=== PATIENT | female | born 1980 ===

== ENCOUNTER 2019-06-10 19:40 | Observation (INO) ==
[2019-06-10] MEDS ORDERED: ONDANSETRON 4 MG/2 ML VIAL IV ONE (20:06)
[2019-06-10] MEDS ORDERED: MORPHINE 4 MG/1 ML VIAL IV STA (20:06)
[2019-06-10 20:39] LABS: Basophils % 0.3 % (0.0-0.8); Eosinophils # 0.1 10*3/uL (0.0-0.87); Eosinophils % 0.8 % (0.00-10.9); Hematocrit 37.8 VOL% (35.7-47.0); Hemoglobin 12.8 GM/DL (12.0-16.0); Immature Granulocytes % 0.3 %; Immature Granulocytes Absolute 0.03 #; Lymphocytes # 1.1 10*3/uL (1.4-4.0); Lymphocytes % 12.5 % (21.3-54.2); Mean Corpuscular HGB Conc 33.9 GM/DL (32-36); Mean Corpuscular Volume 82.7 FL (87-102); Neutrophils % 81.1 % (38.7-73.9); Platelet Count 281 T/CUMM (130-400); Red Blood Count 4.57 MC/CUMM (3.8-5.5); Red Cell Distribution Width 12.2 % (9.3-17.3); White Blood Count 8.9 T/CUMM (4-12)
[2019-06-10] MEDS ORDERED: ONDANSETRON 4 MG/2 ML VIAL IV PRN (20:47)
[2019-06-10] MEDS ORDERED: ACETAMINOPHEN 325 MG TABLET PO PRN (20:47)
[2019-06-10 20:57] LABS: Albumin 2.9 G/DL (3.4-5.0); Bilirubin,Total 0.4 MG/DL (0.2-1.0); Calcium 8.3 MG/DL (8.5-10.1); Osmolality,Calculated 286.4 MOS/KG (273-304); Total Protein 7.2 G/DL (6.4-8.3)
[2019-06-10] MEDS ORDERED: INSULIN REGULAR 100 UNIT/ML IV STA (21:07)
[2019-06-10] MEDS ORDERED: DEXTROSE 50% 25 GM/50 ML VIAL IV PRN (22:06)
[2019-06-10] MEDS ORDERED: GLUCAGON 1 MG VIAL IM PRN (22:06)
[2019-06-10] MEDS: DEXTROSE 5% NACL 0.45% 1,000 ML IV SCH (22:48)
[2019-06-10] MEDS: PIPERACILLIN/TAZOBACTAM 3,375 MG in SODIUM CHLORIDE 0.9% 100 ML IV SCH (22:54)
[2019-06-11] MEDS ORDERED: INSULIN REGULAR 100 UNIT/ML SUBCUT SCH
[2019-06-11] MEDS: INSULIN REGULAR 100 UNIT/ML SUBCUT SCH ×2 (04:21→09:09)
[2019-06-11] MEDS: PIPERACILLIN/TAZOBACTAM 3,375 MG in SODIUM CHLORIDE 0.9% 100 ML IV SCH (04:24)
[2019-06-11 05:08] LABS: Basophils % 0.5 % (0.0-0.8); Eosinophils # 0.1 10*3/uL (0.0-0.87); Eosinophils % 1.6 % (0.00-10.9); Hematocrit 35.8 VOL% (35.7-47.0); Hemoglobin 11.9 GM/DL (12.0-16.0); Immature Granulocytes % 0.2 %; Immature Granulocytes Absolute 0.01 #; Lymphocytes # 1.4 10*3/uL (1.4-4.0); Mean Corpuscular HGB Conc 33.2 GM/DL (32-36); Mean Corpuscular Volume 82.9 FL (87-102); Monocytes % 6.7 % (1.7-12.7); Platelet Count 286 T/CUMM (130-400); Red Blood Count 4.32 MC/CUMM (3.8-5.5); Red Cell Distribution Width 12.2 % (9.3-17.3); White Blood Count 6.1 T/CUMM (4-12)
[2019-06-11 05:41] LABS: Calcium 8.2 MG/DL (8.5-10.1); Osmolality,Calculated 292.5 MOS/KG (273-304)
[2019-06-11] MEDS: DEXTROSE 5% NACL 0.45% 1,000 ML IV SCH (06:04)
[2019-06-11 07:41] VITALS: BP 107/74
[2019-06-11] MEDS ORDERED: HEPARIN LOCK FLUSH 500 UNIT/5 ML SYRINGE IV PRN (08:04)
[2019-06-11] MEDS ORDERED: HEPARIN LOCK FLUSH 500 UNIT/5 ML SYRINGE IV SCH (08:30)
[2019-06-11] MEDS ORDERED: PANTOPRAZOLE 40 MG VIAL IV SCH (09:00)
== END 2019-06-11 09:41 | disposition home or self-care (01) ==
LOC: N.EDINP 19:40 → N.ED 19:40 → N.3E 21:19 → N.2E 21:24
PROVIDERS: ADMIT Specialist; ATTEND Specialist